=== PATIENT | male | born 1945 | race Caucasian/White ===

== ENCOUNTER → 2018-07-18 | Outpatient (CLI) | payer MEDICARE ==
[~2018-07-18] MED LIST: CONTRAST GIVEN. MC PRN; IOHEXOL 180 MG/ML 10 ML VIAL. IT ONE; LIDOCAINE WITH 8.4% SOD BICARB 3 ML DISP.SYRIN. INJ ONE
[2018-07-18 10:45] VITALS: BP 149/88
--- NOTE | 2018-07-18 12:21 | RAD ---
Lumbar myelogram, 07/18/2018: History: Back pain, spondylolisthesis Under local anesthesia, aseptic conditions and fluoroscopic guidance a lumbar puncture was performed at the L2 level utilizing a 25-gauge Bharath spinal needle. Good clear CSF flow was obtained following which 14 cc of Omnipaque 180 was injected into the thecal sac. The spinal needle was then removed and hemostasis obtained. Appropriate digital imaging was then performed. 3.1 minutes of fluoroscopy time was utilized. 18 fluoroscopic spot images were recorded. The patient tolerated the procedure well and was sent to CT in good condition. The following findings are delineated on the myelogram: 1. There is partial obstruction to inferior flow of the contrast material at the L2-3 level. This is due to prominent anterior and posterior extradural defects. 2. Due to this partial blockage the degree of opacification of the thecal sac inferior to this level is not optimal on the myelographic images. There are moderate anterior extradural at L3-4 and L4-5 with moderate spinal stenosis at those levels. 3. Grade 1 spondylolisthesis is present at L5-S1. This does not appear to change significantly on upright flexion and extension views. 4. There is poor opacification of the nerve root sleeves throughout the mid and lower lumbar spine. CT of the lumbar spine-post myelogram, 07/18/2018: Multidetector CT imaging was performed with multiplanar reconstructions produced. The following findings are delineated: 1. There are mild anterior and posterior extradural defects at T11-12 resulting in mild central spinal stenosis at that level. The thecal sac measures 7 mm in AP diameter at the midline. 2. At T12-L1 and L1-2 there is no significant posterior disc bulge or protrusion. There are mild degenerative changes involving the facet joints. The central spinal canal and neural foramina are well maintained. 3. There are serpiginous filling defects within the thecal sac at the L1 and upper L2 levels along the inferior aspect of the conus. The appearance suggests abnormal nerve roots due to arachnoiditis versus a vascular malformation. 4. At L2-3 there is moderate broad-based disc protrusion. There is posterior ligamentous thickening due to facet joint arthropathy. In the supine position the thecal sac measures 7-8 mm in AP diameter. There is decreased contrast within the thecal sac due to the stenosis as well as probably the presence of thickened nerve roots. There is moderate bilateral foraminal encroachment. 5. At L3-4 there are extensive hypertrophic degenerative changes involving the facet joints with posterior ligamentous thickening. There is moderate broad-based posterior disc bulging. The combination of findings is causing mild central spinal stenosis in a triangular configuration. The thecal sac measures 9 mm in AP diameter at the midline. There is moderate to severe encroachment upon the neural foramina bilaterally. 6. At L4-5 there is also considerable facet joint arthropathy with spurring, worse on the left. There is moderate broad-based posterior disc bulging. This narrows the left side of the thecal sac. There is moderate to severe bilateral foraminal encroachment. 7. At L5-S1 there is bilateral spondylolysis. There is grade 1 spondylolisthesis. In the supine position for the CT study there is 4-5 mm of anterior subluxation of L5 relative to S1. There is a vacuum disc phenomenon at L5-S1 with moderate broad-based posterior disc protrusion. The combination of findings is causing severe foraminal narrowing. The thecal sac measures 8-9 mm in AP diameter at the midline. 8. There is extensive aortoiliac calcific plaquing. There is dilatation of the infrarenal abdominal aorta, incompletely delineated on these scans. IMPRESSION: 1. Severe multilevel degenerative changes as described above. 2. Bilateral spondylolysis at L5 with grade 1 spondylolisthesis at L5-S1 and severe associated bilateral foraminal narrowing at that level. 3. Severe central spinal stenosis at L2-3 in the upright position. 4. Serpiginous intradural filling defects at L1 and L2 suggesting arachnoiditis versus a vascular malformation. 5. Mild central spinal stenosis at L3-4 and L4-5 with moderate to severe bilateral foraminal encroachment at those levels. 6. Infrarenal abdominal aortic aneurysm, incompletely delineated on this exam. PQRS Compliance Statement: One or more of the following individualized dose reduction techniques were utilized for this examination: 1. Automated exposure control 2. Adjustment of the mA and/or kV according to patient size 3. Use of iterative reconstruction technique
== END | disposition home or self-care (01) ==
LOC: RAD 08:58
PROVIDERS: ATTEND Neurological Surgery
DX: M47.897 Other spondylosis, lumbosacral region (principal); M48.062 Spinal stenosis, lumbar region with neurogenic claudication; I71.4 Abdominal aortic aneurysm, without rupture
CPT/HCPCS: 72132; 72265; Q9965

== ENCOUNTER → 2018-07-30 | Outpatient (CLI) | payer MEDICARE ==
[2018-07-18 10:45] VITALS: BP 149/88
[~2018-07-30] MED LIST changes: +ATOR40TA59 PO; -CONTRAST GIVEN. MC PRN; +DOCU-109 PO; +HYDR-971 PO; +HYDR12.58 PO; +IBUP200T58 PO; -IOHEXOL 180 MG/ML 10 ML VIAL. IT ONE; +LEVO50TA5 PO; -LIDOCAINE WITH 8.4% SOD BICARB 3 ML DISP.SYRIN. INJ ONE; +LOSA50TA7 PO; +METH-38 PO; +METO-239 PO
[2018-07-30 14:40] LABS: BASO # 0.1 x10^3/uL (0.0-0.2); BASO % 1 % (0-3); EOS # 0.1 x10^3/uL (0.0-0.7); EOS % 1 % (0-3); HEMATOCRIT 44.8 % (39.0-53.0); HEMOGLOBIN 15.5 g/dL (13.0-17.5); LYMPH # 1.9 x10^3/uL (1.0-4.8); LYMPH % 23 % (24-48); MEAN CORPUSCULAR HEMOGLOBIN 33 pg (25-35); MEAN CORPUSCULAR HGB CONC 35 g/dL (31-37); MEAN CORPUSCULAR VOLUME 94 fL (79-100); MONO # 0.7 x10^3/uL (0.0-1.1); MONO % 9 % (0-9); NEUT # 5.5 x10^3uL (1.8-7.7); NEUT % 67 % (31-73); PLATELET COUNT 179 x10^3/uL (140-400); RED BLOOD COUNT 4.75 x10^6/uL (4.30-5.70); RED CELL DISTRIBUTION WIDTH 12.8 % (11.5-14.5); WHITE BLOOD COUNT 8.3 x10^3/uL (4.0-11.0)
[2018-07-30 14:53] LABS: ALBUMIN 3.6 g/dL (3.4-5.0); ALBUMIN/GLOBULIN RATIO 1.2 (1.0-1.7); CREATININE 1.1 mg/dL (0.7-1.3); POTASSIUM 3.5 mmol/L (3.5-5.1); TOTAL BILIRUBIN 1.4 mg/dL (0.2-1.0); TOTAL PROTEIN 6.7 g/dL (6.4-8.2)
--- NOTE | 2018-08-13 20:51 | OP ---
DATE OF SURGERY: 07/31/2018 PREOPERATIVE DIAGNOSES: Lumbar spinal stenosis L2-L3 with neurogenic claudication. POSTOPERATIVE DIAGNOSIS: Lumbar spinal stenosis L2-L3 with neurogenic claudication. OPERATION PERFORMED: Bilateral lumbar laminectomies L2-L3. The operation was done with EMG monitoring, SSEP monitoring, fluoroscopy, microscopic dissection. ENROLLMENT MANAGEMENT DIRECTOR: YIMI Anders, assisted. She assisted with the exposure, the bilateral decompression as well as the closure. OPERATIVE INDICATIONS: The patient is a very pleasant 72-year-old man who developed intractable back and weakness and unsteadiness with regard to his lower extremities. That problem has been progressive. On imaging studies, he was found to have stenosis at L2-L3 with significantly clumped nerve roots above this and after presenting and discussing this case with Neurosurgery, I recommended a lumbar microdecompressive operation. I spoke with him about the surgery and the risks and the technique. He understood and wished to go ahead. DESCRIPTION OF PROCEDURE: Following general endotracheal anesthesia, the patient was positioned prone on the Josh table. Lumbar region prepped and draped in standard fashion. SUSI hose and AV impulse boots were applied for DVT prophylaxis. The microscope was draped. Fluoroscopy was draped and brought in the field. Monitoring was established. Vancomycin 1 gram was given less than 1 hour prior to initiation of the surgery. Using fluoroscopic guidance, I directed my attention to L2-L3 and I brought in the Bowie micro disk retractor. I created exposure at L2-L3 and using the high speed air drill, I burred down a very generous hemilaminotomy on the left side. I then tilted the patient away from nd and drilled to the midline, removing the epidural fat and then peeling away the ligamentum flavum from medial to lateral and performing a generous partial foraminotomy. The disk was slightly bulging, but very firm and calcified and no diskectomy was warranted. Once the ligament was peeled away, the dura moved out laterally and nicely. I did use a bipolar cautery for any epidural bleeding as well as bone wax where necessary. I then went to the right side and performed the identical operation on the right side, placement of a microdisk retractor, drilling the generous hemilaminotomy and then carrying this again to the midline peeling away thickened ligamentum flavum from medial to lateral and performing a partial foraminotomy. Again, no diskectomy was warranted and the region became very well decompressed and the dura again moved nicely and laterally. I irrigated copiously at this point. I noted that I had an excellent decompression for his stenosis. I removed the retractors, obtained excellent hemostasis and then I closed the wound in layers with absorbable suture and skin was closed with 4-0 subcuticular stitch. The operation went very well and the patient was taken to recovery room in excellent condition. I was quite pleased with the surgery. DEL MONTES MD DR: STEVE/aisha JOB#: [id number] / [id number]
== END | disposition home or self-care (01) ==
LOC: SURGPAT 13:25
PROVIDERS: ATTEND Neurological Surgery
DX: Z01.818 Encounter for other preprocedural examination (principal); M48.062 Spinal stenosis, lumbar region with neurogenic claudication
CPT/HCPCS: 36415; 80053; 85025; 87641

== ENCOUNTER 2018-08-05 10:09 | Day surgery (SDC) | payer MEDICARE ==
--- NOTE | 2018-08-02 15:38 | HP ---
ADMIT DATE: 08/05/2018 HISTORY OF PRESENT ILLNESS: The patient is a pleasant 72-year-old who has undergone lumbar surgery in 2013 and did well. 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 He reported that beginning about 6 months ago, spontaneously he developed stiffness and discomfort in his lower back. He then noted increased problems with balance. He says if he walks any distance, he can become unsteady. He has no problems with sitting. Pain is not a particular problem for him. He does not notice significant specific weakness in his legs. The principal problem is back stiffness and unsteadiness. I studied his lumbar flexion and extension myelogram. PAST MEDICAL HISTORY: Hypertension and kidney stones. PAST SURGICAL HISTORY: Laser surgery 2008, lumbar surgery in 2012. FAMILY HISTORY: Heart problems or disease and hypertension. SOCIAL HISTORY: He is a pipe smoker and consumes alcohol daily. ALLERGIES: PENICILLIN. CURRENT MEDICATIONS: Hydrochlorothiazide, levothyroxine, Advil, metoprolol, losartan and atorvastatin. REVIEW OF SYSTEMS: A 12-point review of systems was obtained and is noncontributory except that mentioned above. PHYSICAL EXAMINATION: NEUROSURGERY EXAMINATION: GENERAL APPEARANCE: Alert, pleasant, no acute distress. HEAD: Normocephalic and atraumatic. SKIN: Warm and dry. Well-healed lumbar incision. MUSCULOSKELETAL: Lumbar paraspinal muscle bulk is normal, restricted range of motion of the lumbar spine, [id number] tenderness of lower lumbar spine with palpation, normal range of motion of the lower extremities bilaterally. EXTREMITIES: No clubbing, cyanosis or edema. NEUROLOGIC: Alert and oriented x 3, normal recent and remote memory. Strength 5/5 in bilateral lower extremities. Sensory is intact to light touch in bilateral lower extremities. Reflexes are present and symmetric in lower extremities bilaterally, negative straight leg raising bilaterally, normal gait. IMAGING: On the lumbar myelogram and post-myelogram CT scan at L2-L3, there is severe lumbar spinal stenosis. Additionally, there is significant clumping of nerve roots above that level, which the radiologist is concerned, may represent a vascular abnormality. ASSESSMENT/PLAN: My feeling is that he should undergo lumbar microdecompressive surgery at L2-L3. I have reviewed this with Dr. Capone at as well as the neuroradiologist there. Their feeling is that this does not represent most likely a vascular abnormality, but has instead clumped nerve roots. After that discussion, I am going to move forward with lumbar micro surgery. I have discussed my findings with the patient. I have discussed the risks of the operation. I have discussed the technique. He understands. He would like to move forward. We will make the arrangements. DEL MONTES MD DR: STEVE/aisha JOB#: [id number] / [id number] LAN
[~2018-08-05] VITALS: Ht 175.3 cm; Wt 86.2 kg
[~2018-08-05 10:09] MED LIST changes: +BACITRACIN 50,000 UNIT in IV NORMAL SALINE 1000ML BAG 1,000 ML IRR ONE; +BUPIVAC MPF-EPI 0.5%-1:200000 30 ML VIAL. ONE; -DOCU-109 PO; +GELATIN SPONGE SIZE 100. ONE; -HYDR-971 PO; +HYDROmorphone 2 MG/ML VIAL IV PRN; +IV RINGERS,LACTATED 1000ML 1,000 ML IV SCH; +KETOROLAC 60 MG/2 ML INJ FOR OR. ONE; +LIDOCAINE 1% PF 2 ML VIAL. ID PRN; -METH-38 PO; +MORPHINE SULFATE 2 MG/ML VIAL. IV PRN; +ONDANSETRON PF 4 MG/2 ML VIAL. IV PRN; +PROCHLORPERAZINE 10 MG/2 ML VIAL. IV PRN; +THROMBIN TOPICAL 20,000 UNIT SPRAY.SYRN KIT TP ONE; +VANCOMYCIN 1GM IVPB FOR OMNI 250 ML IV PRN; +fentaNYL PF VIAL 100 MCG/2 ML VIAL IV PRN
[2018-08-05] MEDS ORDERED: DEXAMETHASONE SOD PHOS 20 MG/5 ML VIAL. ONE (13:40)
[2018-08-05] MEDS ORDERED: LIDOCAINE 2% PF Vial for OR 5 ML VIAL. ONE (13:40)
[2018-08-05] MEDS ORDERED: PROPOFOL 20 ML IV ONE ×2 (13:40→16:18)
[2018-08-05] MEDS ORDERED: PHENYLEPHRINE 10 MG/ML VIAL. ONE ×3 (13:40→13:51)
[2018-08-05] MEDS ORDERED: PROPOFOL 50 ML IV ONE (13:40)
[2018-08-05] MEDS ORDERED: ONDANSETRON PF 4 MG/2 ML VIAL. ONE (13:40)
[2018-08-05] MEDS ORDERED: REMIFENTANIL 2 MG VIAL. IV ONE (13:41)
[2018-08-05] MEDS ORDERED: ROCURONIUM 50 MG/5 ML VIAL. ONE (13:41)
[2018-08-05] MEDS ORDERED: MINERAL OIL/PETROLATUM,WHITE OPHTH OINT 3.5GM TUBE. ONE (13:51)
[2018-08-05] MEDS ORDERED: ePHEDrine PF IN SALINE 50 MG/5 ML DISP.SYRIN IV ONE (15:42)
[2018-08-05] MEDS ORDERED: GLYCOPYRROLATE 1 MG/5 ML VIAL. ONE (15:44)
[2018-08-05] MEDS ORDERED: PROPOFOL 100 ML IV ONE (15:56)
--- NOTE | 2018-08-05 16:46 | DISCH ---
DISCHARGE INSTRUCTIONS Condition on Discharge Condition on Discharge: Stable Activity After Discharge Activity Instructions for Disc: Activity as tolerated, Avoid exertion Bathing Instructions: Shower-keep dressing dry Lifting Instructions after Dis: No heavy lifting, No pulling or pushing, Do not lift >10 pounds Diet after Discharge Additional Diet Restrictions: resume home diet Wound Incision Care Wound/Incision Care: Ice to area for comfort Other wound/incision instructi: may remove dressing in 48 hrs if dry then may shower, no soaking Contacting the DRTaylor after DC Call your doctor for: Concerns you may have Follow-Up Follow up with: Dr. Montes's nurse in 2 weeks [phone] DEL MONTES MD Aug 05, 2018 16:46
[2018-08-05] MEDS ORDERED: DOCU-109 PO (16:48)
[2018-08-05] MEDS ORDERED: HYDR-971 PO (16:48)
[2018-08-05] MEDS ORDERED: METH-38 PO (16:48)
[2018-08-05] MEDS ORDERED: NEOSTIGMINE METHYLSULFATE 5 MG/5 ML SYRINGE. ONE (17:55)
[2018-08-05] MEDS ORDERED: fentaNYL PF VIAL 100 MCG/2 ML VIAL ONE (18:14)
[2018-08-05] MEDS ORDERED: DESFLURANE > 120 MINUTES IH ONE (18:14)
[2018-08-05] MEDS ORDERED: IV RINGERS,LACTATED 1000ML 1,000 ML IV SCH (19:06)
[2018-08-05] MEDS ORDERED: LIDOCAINE 1% PF 2 ML VIAL. ID PRN (19:15)
[2018-08-05] MEDS ORDERED: PROCHLORPERAZINE 10 MG/2 ML VIAL. IV PRN (19:15)
[2018-08-05] MEDS ORDERED: fentaNYL PF VIAL 100 MCG/2 ML VIAL IV PRN ×2 (19:15)
[2018-08-05] MEDS ORDERED: MORPHINE SULFATE 2 MG/ML VIAL. IV PRN (19:15)
[2018-08-05] MEDS ORDERED: ONDANSETRON PF 4 MG/2 ML VIAL. IV PRN (19:15)
[2018-08-05] MEDS ORDERED: HYDROmorphone 2 MG/ML VIAL IV PRN (19:15)
[2018-08-05] MEDS ORDERED: HYDROcodone/APAP 5/325MG 1 TAB TABLET PO ONE (19:30)
[2018-08-05 20:15] VITALS: BP 93/45
--- NOTE | 2018-08-07 16:07 | PATHOLOGY ---
[facility] Accession Number: [id number] . 01 Material submitted: . LUMBAR DECOMPRESSION AND DISC . 01 Clinician provided ICD-10: M48.061 . 01 Clinical history: . Lumbar stenosis . 02 Diagnosis: Segments of fibrocartilaginous, fibroadipose, and skeletal muscle tissue and bone, lumbar decompression and disc: - Degenerative changes of fibrocartilaginous tissue. (JPM:panfilo; 08/07/2018) QMS/08/07/2018 . 02 Comment: There is no evidence of an acute inflammatory process or malignancy. . 02 Electronically signed: . Daryn Mirza MD, Pathologist NPI- [id number] . 01 Gross description: . Received in formalin labeled "Francisco Javier Quinn, lumbar decompression and disc," are several pieces of glistening, fibrous tissue measuring 4.5 x 3.6 x 1.9 cm in aggregate dimensions, containing small fragments of possible bone. The tissue is submitted representatively in cassette A1, following decalcification. (TSD; 08/06/2018) TOB/TOB . 02 Pathologist provided ICD-10: M51.36 . 02 CPT . 190359, [id number] Specimen Comment: A courtesy copy of this report has been sent to Specimen Comment: [phone], . Specimen Comment: Report sent to / DR WAYNE Performed at: 01 [facility] [address], [place] [id number] MD Rashid Trimble MD Phone: [phone] Performed at: 02 [facility] [address] [place], [place] [id number] MD Daryn Mirza MD Phone: [phone]
--- NOTE | 2018-08-14 10:44 | OP ---
DATE OF SURGERY: 08/05/2018 PREOPERATIVE DIAGNOSES: Lumbar spinal stenosis L2-L3 with neurogenic claudication. POSTOPERATIVE DIAGNOSIS: Lumbar spinal stenosis L2-L3 with neurogenic claudication. OPERATION PERFORMED: Bilateral lumbar laminectomies L2-L3. The operation was done with EMG monitoring, SSEP monitoring, fluoroscopy, microscopic dissection. SURGEON: Boston Montes M.D. VACUUM CLEANER REPAIRER: YIMI Anders, assisted. She assisted with the exposure, the bilateral decompression as well as the closure. OPERATIVE INDICATIONS: The patient is a very pleasant 72-year-old man who developed intractable back pain and weakness and unsteadiness with regard to his lower extremities. That problem has been progressive. On imaging studies, he was found to have stenosis at L2-L3 with significantly clumped nerve roots above this and after presenting and discussing this case with Neurosurgery, I recommended a lumbar microdecompressive operation. I spoke with him about the surgery and the risks and the technique. He understood and wished to go ahead. DESCRIPTION OF PROCEDURE: Following general endotracheal anesthesia, the patient was positioned prone on the Josh table. Lumbar region prepped and draped in standard fashion. SUSI hose and AV impulse boots were applied for DVT prophylaxis. The microscope was draped. Fluoroscopy was draped and brought in the field. Monitoring was established. Vancomycin 1 gram was given less than 1 hour prior to initiation of the surgery. Using fluoroscopic guidance, I directed my attention to L2-L3 and I brought in the Anderson micro disc retractor. I created an exposure at L2-L3 and using the high speed air drill, I burred down a very generous hemilaminotomy on the left side. I then tilted the patient away from me and drilled to the midline, removing the epidural fat and then peeling away the ligamentum flavum from medial to lateral and performing a generous partial foraminotomy. The disc was slightly bulging, but very firm and calcified and no discectomy was warranted. Once the ligament was peeled away, the dura moved out laterally and nicely. I did use a bipolar cautery for any epidural bleeding as well as bone wax where necessary. I then went to the right side and performed the identical operation on the right side, placement of a microdisk retractor, drilling the generous hemilaminotomy and then carrying this again to the midline peeling away thickened ligamentum flavum from medial to lateral and performing a partial foraminotomy. Again, no discectomy was warranted and the region became very well decompressed and the dura again moved nicely and laterally. I irrigated copiously at this point. I noted that I had an excellent decompression for his stenosis. I removed the retractors, obtained excellent hemostasis and then I closed the wound in layers with absorbable suture and skin was closed with 4-0 subcuticular stitch. The operation went very well and the patient was taken to recovery room in excellent condition. I was quite pleased with the surgery. BOSTON MONTES MD DR: STEVE/aisha JOB#: [id number] / [id number] LAN
== END 2018-08-05 21:03 | disposition home or self-care (01) ==
LOC: SURG 10:09
PROVIDERS: ATTEND Neurological Surgery
DX: M48.061 Spinal stenosis, lumbar region without neurogenic claudication (principal); I10 Essential (primary) hypertension; N40.0 Benign prostatic hyperplasia without lower urinary tract symptoms; Z82.49 Family history of ischemic heart disease and other diseases of the circulatory system; Z98.890 Other specified postprocedural states; Z88.0 Allergy status to penicillin; Z79.899 Other long term (current) drug therapy
CPT/HCPCS: 63047; 88304; 88311; A7015; J1100; J1885; J2001; J2405; J2704; J2710; J3010; J3370; J3490; J7030; 76000